=== PATIENT | male | born 1995 | race Caucasian/White ===

== ENCOUNTER 2020-03-19 18:28 | Emergency (ER) | payer OTHER ==
[~2020-03-19] VITALS: Ht 182.9 cm; Wt 102.1 kg
== END 2020-03-19 23:17 | disposition home or self-care (01) ==
LOC: ER 18:28
DX: R10.13 Epigastric pain (principal); K80.50 Calculus of bile duct without cholangitis or cholecystitis without obstruction; K29.60 Other gastritis without bleeding

== ENCOUNTER 2020-04-18 07:00 | Day surgery (SDC) | payer OTHER ==
[~2020-04-18] VITALS: Ht 190.5 cm; Wt 97.5 kg
[2020-04-18] MEDS ORDERED: ZOFRAN4 MG PO (12:01)
[2020-04-18] MEDS ORDERED: DICY20TA PO (12:01)
[2020-04-18] MEDS ORDERED: PERCOCET 5-3251 EACH PO (12:01)
[2020-04-18] MEDS ORDERED: NEXIUM 24HR20 M1 PO (12:01)
== END 2020-04-18 13:00 | disposition home or self-care (01) ==
LOC: CIR.AMB 07:00 → SURH 07:11 → O/R 07:11 → EDSTATUS 09:30 → SURH 09:30 → CIR.AMB 13:00 → O/R 14:35
PROVIDERS: ATTEND Surgery
DX: K80.10 Calculus of gallbladder with chronic cholecystitis without obstruction (principal)